=== PATIENT | female | born 1970 | race Two or more races ===

== ENCOUNTER 2023-12-02 08:50 | Outpatient (AMB) | payer OTHER, SELFPAY ==
--- NOTE | 2023-12-02 08:51 | A.OFFVIS_ITS ---
Vital Signs 12/02/23 08:53 Height 4 ft 11 in Weight 185 lb 13.595 oz BMI 37.5 BP 134/90 H Blood Pressure Location Lt brachial Position Sitting Pulse 85 Pulse Source Pulse Oximeter Intake Visit Reasons: Hypothyroidism-conf Intake Note: New patient externally referred by PCP, present today for Hypothyroidism. Route Sales Delivery Drivers Supervisor Required: Yes Route Sales Delivery Drivers Supervisor Language: Clinical Trials Assistant Services: Route Sales Delivery Drivers Supervisor Present Information Interpreted: non-clinical & clinical Accompanied by: Self / Same As Patient Allergies No Known Allergies [No Known Allergies*] Allergy (Unverified 12/02/23 08:55) Medication List - Last Reconciled 12/02/23 by Everardo Santamaria MD atorvastatin 40 mg PO DAILY hydrochlorothiazide 12.5 mg PO DAILY levothyroxine 125 mcg PO DAILY lisinopril 20 mg PO DAILY HPI Comments Details: 53 YO female with PMHx hypothyroidism who is seen in consultation at the request of his PCP for Hyothyroidism. First diagnosed with Hypothyroidism - [place] [address] Wagner - had radioactive - Currently using thyroid hormone. levothyroxine 125 ug . On that dose for 6 mos compliance and proper administration of levothyroxine but admits to not taking it for 1 mo in 10/2023 . Currently on levothyroxine admits to fatigue, weight gain, cold intolerance, - dry skin, -hair loss, - constipation. There is hx of hyperlipidemia . Denies obstructive sx of goiter . Denies consuming any kelp or seaweed. Denies taking amiodarone. Biotin: No Family hx of thyroid dx: brother and sister - hypothyroidism Labs: LKE=246 11/01/2023 [facility] Medical History (Updated 12/02/23 @ 08:55 by Everardo Santamaria MD) Hypothyroidism Surgical History (Updated 12/02/23 @ 08:57 by PATRICK Craft) History of tubal ligation Family History (Updated 12/02/23 @ 08:58 by PATRICK Craft) Mother Liver cancer Father Stroke Heart attack Skin cancer Diabetes Social History Alcohol intake: current Alcohol intake frequency: holidays/special occasions only Patient Tobacco Use Status: Never used Tobacco Physical Exam HEENT reveals absence of lid lag , stare or proptosis or eyebrow loss. Thyroid gland is decreased in size weighs about 5 g. No nodules or tenderness palpated. There is no cervical adenopathy palpated. Lungs CTA. Heart S1, S2 Reg R/R - M/R/G. Abdominal exam benign. Skin exam reveals absence of dryness or thyroid dermopathy or vitiligo. Nail exam reveals absence of thyroid acropachy or oncholysis. Neurologic exam reveals 2+ reflexes . Muscle Strength is 5/5 proximally. There are no tremors in upper extremities. Assessment & Plan Assessment & Plan (1) Hypothyroidism: Code(s): E03.9 - Hypothyroidism, unspecified Category: Medical Plan: This is a 53-year-old female with a history of hypothyroidism currently being replaced with 125 mcg levothyroxine. She appears to be clinically euthyroid but was found to have a markedly elevated TSH due to not taking the levothyroxine for a month Plan is to stress compliance with levothyroxine and recheck TSH and free T4 in 4 weeks if the patient has been consistent taking it. We will then adjust levothyroxine accordingly Orders: Orders Free T4 (Free Thyroxine) 4 Weeks E03.9 - Hypothyroidism, unspecified Thyroid Stimulating Hormone 4 Weeks E03.9 - Hypothyroidism, unspecified Coding Level of Care Code New Pt Level 4 (39089) Diagnoses Hypothyroidism E03.9
[2023-12-02 08:53] VITALS: BP 134/90; PULSE 85; BMI 37.5
== END 2023-12-02 09:30 | disposition home or self-care (01) ==
PROVIDERS: PCP Family Medicine Geriatric Medicine; Visit Provider Internal Medicine Endocrinology, Diabetes & Metabolism
DX: E03.9 Hypothyroidism, unspecified (principal)
CPT/HCPCS: 99204

== ENCOUNTER → 2023-12-02 08:50 | Outpatient (BNVA) | payer OTHER, SELFPAY | PROVIDERS: PCP Family Medicine Geriatric Medicine; Visit Provider Internal Medicine Endocrinology, Diabetes & Metabolism | DX: E03.9 Hypothyroidism, unspecified (principal) | CPT/HCPCS: 99202 ==

== ENCOUNTER 2024-01-06 10:32 | Outpatient (REF) | payer OTHER, SELFPAY ==
[2024-01-06 12:48] LABS: Free T4 (Free Thyroxine) 0.94 ng/dL (0.71-1.85); Thyroid Stimulating Hormone 6.61 uIU/mL (0.32-4.0)
== END 2024-01-06 10:33 | disposition home or self-care (01) ==
LOC: HO.LAB 10:32
PROVIDERS: PCP Internal Medicine; Visit Provider Internal Medicine Endocrinology, Diabetes & Metabolism
DX: E03.9 Hypothyroidism, unspecified (principal)
CPT/HCPCS: 36415; 84439; 84443

== ENCOUNTER 2024-02-27 09:38 | Outpatient (REF) | payer OTHER, SELFPAY | END 2024-02-27 09:39 | disposition home or self-care (01) | LOC: HO.10HDL 09:38 | PROVIDERS: Visit Provider Internal Medicine Endocrinology, Diabetes & Metabolism | DX: E03.9 Hypothyroidism, unspecified (principal) | CPT/HCPCS: 36415; 84439; 84443 ==

== ENCOUNTER 2024-04-02 09:09 | Outpatient (AMB) | payer OTHER, SELFPAY ==
[2024-04-02 09:10] VITALS: BP 132/90; PULSE 79; O2SAT 96; BMI 36.4
--- NOTE | 2024-04-02 09:10 | MHC.OFFVIS ---
Vital Signs 04/02/24 09:10 Height 4 ft 11 in Weight 180 lb 5.41 oz BMI 36.4 BP 132/90 H Blood Pressure Location Lt brachial Position Sitting Pulse 79 Pulse Source Pulse Oximeter Pulse Oximetry (%) 96 Oxygen Delivery Method Room Air Intake Visit Reasons: f/u post-operative hypothyroidism Intake Note: Patient present today for Hypothyroidism follow up visit. Elementary Education Teacher Required: Yes Elementary Education Teacher Language: Genomics Scientist Services: Elementary Education Teacher Present Elementary Education Teacher Name: Lexi Information Interpreted: non-clinical & clinical Accompanied by: Self / Same As Patient Allergies No Known Allergies [No Known Allergies*] Allergy (Unverified 04/02/24 09:14) Medication List - Last Reconciled 04/02/24 by Everardo Santamaria MD atorvastatin 40 mg PO DAILY hydrochlorothiazide 25 mg PO DAILY levothyroxine 137 mcg PO DAILY lisinopril 30 mg PO DAILY HPI Comments Details: 53 YO female with PMHx hypothyroidism who is seen in consultation at the request of his PCP for Hyothyroidism. First diagnosed with Hypothyroidism - had [place]thy[place] [address] Wagner - had radioactive - Currently using thyroid hormone. levothyroxine 137 ug . On that dose for 6 mos compliance and proper administration of levothyroxine but admits to not taking it for 1 mo in 10/2023 . Currently on levothyroxine admits to fatigue, weight gain, cold intolerance, - dry skin, -hair loss, -constipation. There is hx of hyperlipidemia . Denies obstructive sx of goiter . Denies consuming any kelp or seaweed. Denies taking amiodarone. Biotin: No Family hx of thyroid dx: brother and sister - hypothyroidism Labs: EDC=018 11/01/2023 currently on levothyroxine 137 mcg PFSH Medical History (Updated 12/02/23 @ 08:55 by Everardo Santamaria MD) Hypothyroidism Surgical History (Updated 12/02/23 @ 08:57 by PATRICK Craft) History of tubal ligation Family History (Updated 12/02/23 @ 08:58 by PATRICK Craft) Mother Liver cancer Father Stroke Heart attack Skin cancer Diabetes Social History (Updated 12/02/23 @ 08:59 by PATRICK Craft) Alcohol intake: current Alcohol intake frequency: holidays/special occasions only Patient Tobacco Use Status: Never used Tobacco Physical Exam Vital Signs: Last Vital Signs Pulse 79 02/20/25 09:10 BP 132/90 H 04/02/24 09:10 Pulse Ox 96 04/02/24 09:10 Oxygen Delivery Method Room Air 04/02/24 09:10 BMI result Body Mass Index 36.4 HEENT reveals absence of lid lag , stare or proptosis or eyebrow loss. Thyroid gland is decreased in size weighs about 5 g. No nodules or tenderness palpated. There is no cervical adenopathy palpated. Lungs CTA. Heart S1, S2 Reg R/R -M/R/G. Abdominal exam benign. Skin exam reveals absence of dryness or thyroid dermopathy or vitiligo. Nail exam reveals absence of thyroid acropachy or oncholysis. Neurologic exam reveals 2+ reflexes . Muscle Strength is 5/5 proximally. There are no tremors in upper extremities. Assessment & Plan Assessment & Plan (1) Hypothyroidism: Code(s): E03.9 - Hypothyroidism, unspecified Category: Medical Plan: This is a 53-year-old female with a history of hypothyroidism currently being replaced with 137 mcg levothyroxine. She appears to be clinically and biochemically euthyroid Plan is to continue the current therapy. At this point, patient returned to the care of her primary care provider and returned back to endocrinology as needed Coding Level of Care Code Est Pt Level 3 (62083) Diagnoses Hypothyroidism E03.9
--- OUTSIDE RECORDS SUMMARY | 2024-04-02 09:49 | XMS_ITS | Encounter Summary ---
Author Organization [facility] Address [address] [place] [address] Care Team Providers Care Chip Separator Name Role Phone Angel Wilkinson MD Primary Care Provider [phone] Reason for Referral * Imaging (Routine) - Closed Specialty Diagnoses / Procedures Referred By Juan Antonio pierce Referred To Contact Radiology Diagnoses Encounter for screening mammogram for breast cancer Procedures MG Mammo Digital Screening w Papito bilat MG Mammo Digital Screening w Angel Black MD [address] [place] [address] Phone: tel: fax: [facility] Referral ID Status Reason Start Date Expiration Date Visits Re quested Visits Authorized [id number] Closed 11/28/2023 11/27/2024 1 1 Reason for Visit * Imaging (Routine) - Closed Specialty Diagnoses / Procedures Referred By Juan Antonio pierce Referred To Contact Radiology Diagnoses Encounter for screening mammogram for breast cancer Procedures MG Mammo Digital Screening w Papito bilat MG Mammo Digital Screening w Angel Black MD [address] [place] [address] Phone: tel: fax: [facility] Referral ID Status Reason Start Date Expiration Date Visits Re quested Visits Authorized [id number] Closed 11/28/2023 11/27/2024 1 1 Encounter Details Date Type Department Care Team (Latest Contact Info) Description 03/10/2024 3:24 PM EST - 03/10/2024 11:59 PM EST Hospital Encounter Radiology Department - [address] [address] Encounter for screening mammogram for breast cancer Discharge Disposition: Home or Self Care Social History Tobacco Use Types Packs/Day Years Used Date Smoking Tobacco: Never Smokeless Tobacco: Never Alcohol Use Standard Drinks/Week Comments Yes 0 (1 standard drink = 0.6 oz pur e alcohol) Comments No Sex and Gender Information Value Date Recorded Sex Assigned at Not on file Legal Sex Female 6:19 PM EST Gender Identity Not on file Sexual Orientation Not on file documented as of this encounter Medications at Time of Discharge atorvastatin (LIPITOR) 40 mg tablet Take 1 Tablet by mouth daily for 360 days. 11/01/2023 10/26/2024 hydroCHLOROthiazi de (HYDRODIURIL) 25 mg tablet Take 1 Tablet by mouth daily for 180 days. - Oral levothyroxine (SYNTHROID, LEVOTHROID) 125 mcg tablet Take 137 mcg by mouth 1 (one) time each day before breakfast. 10/21/2023 lisinopriL (PRINIVIL,ZESTRIL ) 20 mg tablet Take 1.5 tablets (30 mg total) by mouth 1 (one) time each day. 45 tablet 5 02/17/2024 documented as of this encounter Discharge Disposition Disposition Code Departure Means Destination Home or Self Care documented in this encounter Plan of Treatment Upcoming Encounters Date Type Department Care Team (Late Contact Info) Description 09/11/2024 11:30 AM EDT Office Visit Slurry Control Operator Helper [facility] [address] [place] [address] Angel Wilkinson MD [address] [facility] [place] [address] documented as of this encounter Procedures Procedure Name Priority Date/Time Associated Diagnosis Comments MG MAMMO DIGITAL SCREENING W PAPITO BILAT Routine 03/10/2024 3:33 PM EST Encounter for screening mammogram for breast cancer documented in this encounter Results * MG Mammo Digital Screening w Papito bilat (03/10/2024 3:33 PM EST) Anatomical Region Laterality Modality Breast Bilateral Mammography 03/11/2024 6:38 PM EST Impressions 03/11/2024 6:40 PM EST No mammographic evidence for malignancy. BI-RADS CATEGORY: 1 - NEGATIVE RECOMMENDATION: Screening bilateral mammogram is recommended in 1 year. Mammo Location: [facility], [address] [place] [address], [id number], . -------- FINAL REPORT -------- Dictated By: Sallie Martino Dictated Date: 03/11/2024 18:38 ET Assigned Physician: Sallie Martino Reviewed and Electronically Signed By: Sallie Martino Signed Date: 03/11/2024 18:40 ET Workstation ID: [id number] Transcribed By: Self Edit Transcribed Date: 03/11/2024 18:38 ET Narrative 03/11/2024 6:40 PM EST Bilateral screening mammogram. CLINICAL: 53 years old, Female, routine annual exam. COMPARISON: Prior mammograms, latest from 03/09/2023. ?? TECHNIQUE: Bilateral MLO and CC views were obtained digitally with 2 D C views and 3-D mammogram (digital breast tomosynthesis). Computer-aided detection was utilized in evaluation of this exam (CAD). FINDINGS: There is no evidence of suspicious mass or architectural distortion. ??No worrisome calcifications are evident. ??There has been no significant change from prior exam(s). ?? BREAST DENSITY: C - The breasts are heterogeneously dense which may obscure small masses. Procedure Note Sallie Martino MD - 03/11/2024 Bilateral screening mammogram. CLINICAL: 53 years old, Female, routine annual exam. COMPARISON: Prior mammograms, latest from 03/09/2023. TECHNIQUE: Bilateral MLO and CC views were obtained digitally with 2 D Cviews and 3-D mammogram (digital breast tomosynthesis). Computer-aideddetection was utilized in evaluation of this exam (CAD). FINDINGS: There is no evidence of suspicious mass or architectural distortion. Noworrisome calcifications are evident. There has been no significantchange from prior exam(s). BREAST DENSITY: C - The breasts are heterogeneously dense which mayobscure small masses. IMPRESSION: No mammographic evidence for malignancy. BI-RADS CATEGORY: 1 - NEGATIVE RECOMMENDATION: Screening bilateral mammogram is recommended in 1 year. Mammo Location: [facility], [address] [place] [address], [id number], . -------- FINAL REPORT -------- Dictated By: Sallie Martino Dictated Date: 03/11/2024 18:38 ET Assigned Physician: Sallie Martino Reviewed and Electronically Signed By: Sallie Martino Signed Date: 03/11/2024 18:40 ET Workstation ID: [id number] Transcribed By: Self Edit Transcribed Date: 03/11/2024 18:38 ET Angel Wilkinson MD IMG BI PROCEDURES Final Result documented in this encounter Visit Diagnoses Diagnosis Encounter for screening mammogram for breast cancer documented in this encounter Care Teams Chip Separator Relationship Specialty Start Date End Date Angel Wilkinson MD [address] [place] [address] PCP - General Internal Medicine 01/23/21 documented as of this encounter
--- OUTSIDE RECORDS SUMMARY | 2024-04-02 09:49 | XMS_ITS | Encounter Summary ---
Author Organization [facility] Address [address] [place] [address] Care Team Providers Care Surveillance Observer Name Role Phone Angel Wilkinson MD Primary Care Provider [phone] Reason for Visit * Reason Comments Annual Exam Encounter Details Date Type Department Care Team (Latest Contact Info) Description 04/01/2024 11:15 AM EST Office Visit Obstetrics and Gynecology - [facility] [address] [place] [address] Christianne Vo, [address] [place] [address] Encounter for annual routine gynecological examination (Primary Dx) Social History Tobacco Use Types Packs/Day Years [...] on file documented as of this encounter Last Filed Vital Signs Vital Sign Reading Time Taken Comments Blood Pressure 154/92 04/01/2024 11:11 AM EST Pulse 81 04/01/2024 11:11 AM EST Temperature - - Respiratory Rate 18 04/01/2024 11:11 AM EST Oxygen Saturation - - Inhaled Oxygen Concentration - - Weight 81.3 kg (179 lb 3.2 oz) 04/01/2024 11:11 AM EST Height 149.9 cm (4' 11 ) 04/01/2024 11:11 AM EST Body Mass Index 36.19 04/01/2024 11:11 AM EST documented in this encounter Progress Notes * Christianne Vo CNM - 04/01/2024 11:15 AM EST Office note: Routine Technical Intern Exam Encounter Date: 04/01/2024 HPI: Niurka Walsh is a 53 y.o. who presents for routine annual exam. No LMP recorded. Patient is postmenopausal. postmenopause . Concerns today None. Review of Systems - General ROS: negative Psychological ROS: negative Breast ROS: negative for breast lumps Respiratory ROS: no cough, shortness of breath, or wheezing Cardiovascular ROS: no chest pain or dyspnea on exertion Gastrointestinal ROS: no abdominal pain, change in bowel habits, or black or bloody stools Genito-Urinary ROS: no dysuria, trouble voiding, or hematuria Health Maintenance and Preventative Care: Health Maintenance: Last mammogram: 03/10/2024- normal. Birads-1. Dense. Offered Ultrasound. Pt declines. Immunization History Administered Date(s) Administered Influenza Quadravalent, MDCK, 0.5ml, preservative free (Flucelvax) 6mo and older 04/30/2023 Influenza trivalent, 0.5mL, preservative free (Fluarix; FluLaval; Fluzone) ages 6mo and older (Afluria) 3 years and older 11/19/2014, 11/19/2018, 11/18/2019, 11/23/2020, 11/01/2023 Tdap Tetanus diptheria acellular pertussis (Boostrix; Adacel) 7yo and older 02/18/2015, 03/07/2020 OB History Para Term AB Living 1 1 1 SAB IAB Ectopic Multiple Live Births 1 # Outcome Date GA Lbr Laith/2nd Weight Sex Type Anes PTL Lv 1 Term Technical Intern History: Last Pap: 01/2022- normal. Neg HPV H/o abnormal Pap: no Completed Gardasil series: no Patient Active Problem List Diagnosis COVID-19 Hypothyroidism (acquired) Primary hypertension Pure hypercholesterolemia Past Medical History: Diagnosis Date Bursitis DX:Bursitis Disorder of thyroid DX:Disorder of thyroid Hypercholesteremia Hypertension Past Surgical History: Procedure Laterality Date TUBAL LIGATION PROCEDURE: HISTORICAL TUBAL LIGATION Family History Problem Relation Name Age of Onset Pancreatic cancer Mother Stroke Father Heart attack Father Hypertension Father Other (Other: skin cancer) Father Thyroid disease Sister Hypertension Sister Hyperlipidemia Sister Hypertension Sister Hyperlipidemia Sister Hypertension Sister Hyperlipidemia Sister Hypertension Sister Hyperlipidemia Sister Hypertension Brother Hyperlipidemia Brother Hypertension Brother Hyperlipidemia Brother Hypertension Brother Hyperlipidemia Brother Hypertension Brother Hyperlipidemia Brother Breast cancer Neg Hx Social History Socioeconomic History Marital status: Spouse name: None Number of children: None Years of education: None Highest education level: None Occupational History None Tobacco Use Smoking status: Never Smokeless tobacco: Never Substance and Sexual Activity Alcohol use: Yes Drug use: Never Sexual activity: Yes Partners: Male control/protection: Post-menopausal Other Topics Concern None Social History Narrative Lives with son. Has 1 son. Works as a HUMAN RESOURCES BENEFITS COORDINATOR No Known Allergies Current Outpatient Medications on File Prior to Visit Medication Sig Dispense Refill atorvastatin (LIPITOR) 40 mg tablet Take 1 Tablet by mouth daily for 360 days. hydroCHLOROthiazide (HYDRODIURIL) 25 mg tablet Take 1 Tablet by mouth daily for 180 days. - Oral levothyroxine (SYNTHROID, LEVOTHROID) 125 mcg tablet Take 137 mcg by mouth 1 (one) time each day before breakfast. lisinopriL (PRINIVIL,ZESTRIL) 20 mg tablet Take 1.5 tablets (30 mg total) by mouth 1 (one) time each day. 45 tablet 5 No current facility-administered medications on file prior to visit. Physical exam: Blood pressure (!) 154/92, pulse 81, resp. rate 18, height 1.499 m (59 ), weight 81.3 kg (179 lb 3.2 oz). Body mass index is 36.19 kg/m??. Gen: Alert, cooperative. Well-appearing on today's exam Breast: Normal appearance, no masses or tenderness, no nipple retraction or dimpling bilaterally. No axillary or supraclavicular lymphadenopathy. Abdomen: Soft,non-tender. No masses palpable, no organomegaly. Skin: Skin color, texture, turgor normal. No rashes or lesions Psych: Mood and affect appropriate. Pelvic: External Genitalia: Exam chaperoned by medical office receptionist. Declined. Normal architecture, without lesions. No inguinal lymphadenopathy. Vagina: Mucosa is pink with normal rugae. No abnormal discharge or lesions. Cervix: Normal appearance, without discharge or lesions. No cervical motion tenderness. Pap smear not obtained. Uterus: Normal size and shape. Anteverted position. Non-tender. Mobile Adnexa: No adnexal masses or tenderness bilaterally. Perianal area without lesions Assessment/Plan: 53 y.o. 1. Screening for sexually transmitted infections -Gonorrhea/Chlamydia testing offered, Not indicated 2. Contraception -N/A- post menopause 3. Health Maintenance and Screening -Reviewed ASCCP guidelines. Pap smear 2026, yearly pelvic exam. -Reviewed and encouraged diet and exercise for cardiovascular and bone health -Reviewed breast self awareness. yearly mammogram at age 38. -Discussed use of 3 times per week weight bearing exercise, Vitamin D3 and 4 servings of dietary calcium daily for bone health. -Continue to follow with PCP for general medical care, immunizations -Family and personal history of cancer reviewed. Anders screening not indicated. Encounter Diagnosis Name Primary? Encounter for annual routine gynecological examination Yes Christianne oV CNM documented in this encounter Plan of Treatment Upcoming Encounters Date Type Department Care Team (Late st Contact Info) Description 09/11/2024 11:30 AM EDT Office Visit Machine Ceramic Coater - [facility] [address] [place] [address] Angel Wilkinson MD [address] [place] [address] documented as of this encounter Visit Diagnoses Diagnosis Encounter for annual routine gynecological examination- Primary documented in this encounter Care Teams Surveillance Observer Relationship Specialty Start Date End Date Angel Wilkinson MD [address] [place] [address] PCP - General Internal Medicine 01/23/21 documented as of this encounter
--- OUTSIDE RECORDS SUMMARY | 2024-04-02 09:49 | XMS_ITS | Clinical Summary ---
Author Organization [address] [facility] Building Address [address] [place] [phone] Phone Care Team Providers Care Broadcast Field Supervisor Name Role Phone Angel Wilkinson MD Primary Care Provider [phone] Allergies No known active allergies Medications atorvastatin (LIPITOR) 40 mg tablet Take 1 Tablet by mouth daily for 360 days. 11/01/2023 Active levothyroxine (SYNTHROID, LEVOTHROID) 125 mcg tablet Take 137 mcg by mouth 1 (one) time each day before breakfast. 10/21/2023 Active hydroCHLOROthia zide (HYDRODIURIL) 25 mg tablet Take 1 Tablet by mouth daily for 180 days. - Oral Active lisinopriL (PRINIVIL,ZESTR IL) 20 mg tablet Take 1.5 tablets (30 mg total) by mouth 1 (one) time each day. 45 tablet 5 02/17/2024 Active Active Problems Problem Noted Date Diagnosed Date COVID-19 12/22/2021 Hypothyroidism (acquired) 05/17/2021 Primary hypertension 05/17/2021 Pure hypercholesterolemia 05/17/2021 Encounters Date Type Department Care Team Description 04/01/2024 11:15 AM EST Office Visit Obstetrics and Gynecology - [address] [phone] Christianne Vo, JEWELS Encounter for annual routine gynecological examination (Primary Dx) 03/10/2024 3:24 PM EST - 03/10/2024 11:59 PM EST Hospital Encounter Radiology Department - [address] [phone] Encounter for screening mammogram for breast cancer Discharge Disposition: Home or Self Care 02/25/2024 8:30 AM EST Office Visit [facility] [address] [place] [phone] Angel Wilkinson MD Primary hypertension (Primary Dx); Pure hypercholesterolemia; Pre-diabetes 01/17/2024 8:30 AM EST Office Visit [facility] [address] [place] [address] Angel Wilkinson MD Elevated blood pressure reading in office with diagnosis of hypertension (Primary Dx); Primary hypertension from Last 3 Months Immunizations Name Administration Dates Next Due Influenza Quadravalent, MDCK , 0.5ml, preservative free (Flucelvax) 6mo and older 04/30/2023 Influenza trivalent, 0.5mL, preservative free (Fluarix; FluLaval; Fluzone) ages 6mo and older (Afluria) 3 years and older 11/01/2023,11/23/2020,11/18/2019,2018,11/19/2014 Tdap Tetanus diptheria acell ular pertussis (Boostrix; Adacel) 7yo and older 03/07/2020,02/18/2015 Surgical History Surgery Date Site/Laterality Comments TUBAL LIGATION PROCEDURE: HISTORICAL TUBAL LIGATION Medical History Medical History Date Comments Disorder of thyroid DX:Disorder of thyroid Bursitis DX:Bursitis Hypertension Hypercholesteremia Family History Medical History Relation Name Comments Hyperlipidemia Brother 1 Hypertension Brother 1 Hyperlipidemia Brother 2 Hypertension Brother 2 Hyperlipidemia Brother 3 Hypertension Brother 3 Hyperlipidemia Brother 4 Hypertension Brother 4 Heart attack Father Hypertension Father Other: skin cancer Father Stroke Father Pancreatic cancer Mother Hyperlipidemia Sister 1 Hypertension Sister 1 Thyroid disease Sister 1 Hyperlipidemia Sister 2 Hypertension Sister 2 Hyperlipidemia Sister 3 Hypertension Sister 3 Hyperlipidemia Sister 4 Hypertension Sister 4 Breast cancer Neg Hx Relation Name Status Comments Brother 1 Brother 2 Alive Brother 3 Alive Brother 4 Alive Father Mother Sister 1 Sister 2 Alive Sister 3 Alive Sister 4 Alive Social History Tobacco Use Types Packs/Day Years Used Date Smoking Tobacco: Never Smokeless Tobacco: Never Tobacco Cessation:Counseling Given: Not Answered Alcohol Use Standard Drinks/Week Comments Yes 0 (1 standard drink = 0.6 oz pur e alcohol) Comments No Sex and Gender Information Value Date Recorded Sex Assigned at Not on file Legal Sex Female 6:19 PM EST Gender Identity Not on file Sexual Orientation Not on file Obstetrics History Para Term AB IAB SAB Ectopic Multiple Livin g Live Births 1 Date Outcome GA Total Labor Labor/2nd/3rd Weight Sex Type Anes PTL Charmaine A1 A5 Name Clin Term Last Filed Vital Signs Vital Sign Reading [...] Mass Index 36.19 04/01/2024 11:11 AM EST Plan of Treatment Upcoming Encounters Date Type Department Care Team (Late st Contact Info) Description 09/11/2024 11:30 AM EDT Office Visit [facility] [address] [place] [address] Angel Wilkinson MD [address] [place] [address] Health Maintenance Due Date Last Done Comments Hepatitis B Vaccines (1 of 3 - 19+ 3-dose series) 09/07/1987 Pneumococcal Vaccine: 50+ Years (1 of 1 - PCV) 2018 Zoster Vaccines (1 of 2) 2018 HIV Screening 01/21/2022 Social Influencers of Health Screening 01/21/2022 COVID-19 Vaccine (1 - 2023- season) 2023 Depression Screening 10/31/2024 11/01/2023 Hypertension/CHF/CAD Annual BMP Blood Test 10/31/2024 11/01/2023, 11/01/2023 Breast Cancer Screening 03/10/2026 03/10/19, 03/09/2023, 02/24/2022, Additional history exists Cervical Cancer Screening: HPV 02/01/2027 02/01/2022 Cholesterol Screening (Lipid Panel) 02/24/2029 02/25/2024, 11/01/2023, 11/01/2023 DTaP,Tdap,and Td Vaccines (3 - Td or Tdap) 03/07/2030 03/07/2020, 02/18/2015 Colorectal Cancer Screening: Colonoscopy 05/31/2032 05/31/2022 Hepatitis C Screening Completed 11/03/2021 Influenza Vaccine Completed 11/01/2023, , 11/23/2020, Additional history exists HIB Vaccines Aged Out No longer eligi ble based on patient's age to complete this topic HPV Vaccines Aged Out No longer eligi ble based on patient's age to complete this topic Hepatitis A Vaccines Aged Out No long er eligible based on patient's age to complete this topic IPV Vaccines Aged Out No longer eligi ble based on patient's age to complete this topic MMR Vaccines Aged Out No longer eligi ble based on patient's age to complete this topic Meningococcal ACWY Vaccine Aged Out N o longer eligible based on patient's age to complete this topic Meningococcal B Vacine Aged Out No lo nger eligible based on patient's age to complete this topic Pneumococcal Vaccine: Pediatrics (0 to 5 Years) and At-Risk Patients (6 to 64 Years) Aged Out No longer eligible based on patient's age to complete this topic RSV Immunization Patients Under 20 months Aged Out No longer eligible based on patient's age to complete this topic Varicella Vaccines Aged Out No longer eligible based on patient's age to complete this topic Procedures Procedure Name Priority Date/Time Associated Diagnosis Comments MG MAMMO DIGITAL SCREENING W PAPITO BILAT Routine 03/10/2024 3:33 PM EST Encounter for screening mammogram for breast cancer LIPID PANEL WITH REFLEX TO DIRECT LDL Routine 02/25/2024 8:59 AM EST Pure hypercholesterolemia HEMOGLOBIN A1C Routine 02/25/2024 8:59 AM EST Pre-diabetes EXTERNAL CLINICAL LAB 01/07/2024 DEPRESSION SCREENING Routine 11/01/2023 ANNUAL BMP BLOOD TEST Routine 11/01/2023 COLONOSCOPY Routine 05/31/2022 HPV Routine 02/01/2022 HEPATITIS C SCREENING Routine 11/03/2021 from Last 3 Months or Most Recently Relevant to Health Maintenance Results * MG Mammo Digital Screening w Papito bilat (03/10/2024 3:33 PM EST) Anatomical Region Laterality Modality Breast Bilateral Mammography 03/11/2024 6:38 PM EST Impressions 03/11/2024 6:40 PM EST No mammographic evidence for malignancy. BI-RADS CATEGORY: 1 - NEGATIVE RECOMMENDATION: Screening bilateral mammogram is recommended in 1 year. Mammo Location: [facility], [address] [place] [address], [id number], . -------- FINAL REPORT -------- Dictated By: Sallie Martino Dictated Date: 03/11/2024 18:38 ET Assigned Physician: Sallie Martino Reviewed and Electronically Signed By: Sallie Mratino Signed Date: 03/11/2024 18:40 ET Workstation ID: [id number] Transcribed By: Self Edit Transcribed Date: 03/11/2024 [...] is recommended in 1 year. Mammo Location: [facility], [address] [place] [address], [id number], . -------- FINAL REPORT -------- Dictated By: Sallie Martino Dictated Date: 03/11/2024 18:38 ET Assigned Physician: Sallie Martino Reviewed and Electronically Signed By: Sallie Martino Signed Date: 03/11/2024 18:40 ET Workstation ID: [id number] Transcribed By: Self Edit Transcribed Date: 03/11/2024 18:38 ET us Angel Wilkinson MD IM BI PROCEDURES Final Result * (ABNORMAL) Lipid panel with reflex to direct LDL (02/25/2024 8:59 AM EST) Cholesterol 227(H) 0 - 200 mg/dL LAB CHEMISTRY METHOD 02/25/2024 4:00 PM EST [facility] Triglycerides 385(H) 0 - 150 mg/dL LAB CHEMISTRY METHOD 02/25/2024 4:00 PM EST [facility] HDL 38(L) >=40 mg/dL LAB CHEMISTRY METHOD 02/25/2024 4:00 PM [facility] LDL Calculated 112(H) 0 - 100 mg/dL LAB CHEMISTRY METHOD 02/25/2024 4:00 PM [facility] VLDL Cholesterol Brain 77 mg/dL LAB CHEMISTRY METHOD 02/25/2024 4:00 PM [facility] Non HDL Chol. (LDL+VLDL) 189(H) <145 mg/dL LAB CHEMISTRY METHOD 02/25/2024 4:00 PM [facility] Chol/HDL Ratio 6.0(H) 0.0 - 4.4 LAB CHEMISTRY METHOD 02/25/2024 4:00 PM [facility] Blood Venous blood specimen / Unknown Venipuncture / Unknown 02/25/2024 8:59 AM EST 02/25/2024 8:59 AM EST Angel Wilkinson MD LAB BLOOD ORDERABLES Final Resu lt [facility] [address] [place] [address], * Hemoglobin A1c (02/25/2024 8:59 AM EST) Hemoglobin A1C 6.0 <6.5 % LAB CHEMISTRY METHOD 02/25/2024 9:26 PM EST [facility] Mean Bld Glu Estim. 126 mg/dL LAB CHEMISTRY METHOD 02/25/2024 9:26 PM EST [facility] Blood Venous blood specimen / Unknown Venipuncture / Unknown 02/25/2024 8:59 AM EST 02/25/2024 8:59 AM EST Angel Wilkinson MD LAB BLOOD ORDERABLES Final Resu lt [facility] [address] [place] [address], * External clinical lab (01/07/2024) Provider Mike Onbase LAB BLOOD ORDERABLES Fin al Result * Annual BMP Blood Test (11/01/2023) [facility] Annual BMP Blood Test Abstracted [facility] Provider HEALTH MAINTENANCE Final Result * Depression Screening (11/01/2023) [facility] Depression Screening Abstracted [facility] Provider HEALTH MAINTENANCE Final Result * Colonoscopy (05/31/2022) [facility] Colonoscopy No Interpretation , Abstracted Anatomical Region Laterality Modality Other Result [facility] Provider HEALTH MAINTENANCE Final Result * Cervical Cancer Screening: HPV (02/01/2022) [facility] Cervical Cancer Screening: HPV Negative, Abstracted [facility] Provider HEALTH MAINTENANCE Final Result * Hepatitis C Screening (11/03/2021) [facility] Hepatitis C Screening Abstracted Result [facility] Provider HEALTH MAINTENANCE Final Result from Last 3 Months or Most Recently Relevant to Health Maintenance [place] [address] [place] [address] [employer] Care Teams Broadcast Field Supervisor Relationship Specialty Start Date End Date Angel Wilkinson MD NPI: [id number] [place] [id number] PCP - General Internal Medicine 01/23/21
== END 2024-04-02 09:25 | disposition home or self-care (01) ==
PROVIDERS: PCP Family Medicine Geriatric Medicine; Visit Provider Internal Medicine Endocrinology, Diabetes & Metabolism
DX: E03.9 Hypothyroidism, unspecified (principal)
CPT/HCPCS: 99213

== ENCOUNTER → 2024-04-02 09:09 | Outpatient (BNVA) | payer OTHER, SELFPAY | PROVIDERS: PCP Family Medicine Geriatric Medicine; Visit Provider Internal Medicine Endocrinology, Diabetes & Metabolism | DX: E03.9 Hypothyroidism, unspecified (principal) | CPT/HCPCS: 99212 ==